=== PATIENT | female | born 1990 | race Caucasian/White ===

== ENCOUNTER 2016-11-07 14:54 | Emergency (ER) | payer MEDICAID ==
[2016-11-07 14:59] VITALS: TEMP 98.1
--- NOTE | 2016-11-07 15:56 | EDPHY ---
HPI/HX/ROS/PE/MDM Narrative: CHIEF COMPLAINT: Alcohol withdrawal HISTORY OF PRESENT ILLNESS: The patient is a 26-year-old female who comes to the ED with alcohol withdrawal. The patient has been drinking daily for the past two months. The patient's last drink was 20 hours ago. She complains of nausea and vomiting. She feels hot and complains of a headache. The patient states she would like to quit drinking. She has quit alcohol in the past and intermittently attends AA. She has no history of alcohol withdrawal seizures. Patient is currently feeling very emotional with no suicidal ideation. She quit taking her Prozac 1 month ago because it made her feel more depressed. Patient is currently menstruating. The patient is actively seeking help for detox. She states she would like help quitting alcohol. She has a job and friends and feels like there is more at stake. REVIEW OF SYSTEMS: Aside from elements discussed in the HPI, a comprehensive 10-point review of systems was reviewed and is negative. PAST MEDICAL HISTORY: Anxiety SOCIAL HISTORY: Heavy alcohol use. Marijuana use daily. Occasional use of OxyContin, Cocaine, Massiel, Acid. VITAL SIGNS: Reviewed by me GENERAL: Well-developed, well-nourished, slightly tearful. HEENT: Atraumatic. Eyes: No icterus, injected bilaterally. Mouth: moist mucous membranes. No tongue fasciculations. No erythema or lesions. Neck: supple with no adenopathy. LUNGS: Clear to auscultation bilaterally, no wheezes, rhonchi or rales. CARDIAC: Regular rate and rhythm, no rubs, murmurs or gallops. ABDOMEN: Soft, nontender, nondistended, bowel sounds normal. BACK: No CVA tenderness. EXTREMITIES: No trauma. No edema. Range of motion is normal throughout. No tremor. NEURO: Alert and oriented, grossly nonfocal. SKIN: Warm and dry, no rash. PSYCHIATRIC: Normal mentation, no agitation. Tearful. Portions of this note were transcribed by a district medical examiner. I personally performed a history, physical exam, medical decision making, and confirmed accuracy of information the transcribed note. ED Course: 26 year old with hx of alcohol abuse seeking care for withdrawl symptoms of headache and nausea. Plan to check basic lab work. IV was established, patient is receiving fluids. No tremors noted. Lab work is unremarkable. Ethyl alcohol level is less than 10. Better post fluids. Discussed at length alcohol withdrawl and offered referral to [facility]. Patient provided with information regarding treatment facilities and AAA. Seen by case monitor as well. Will follow up as directed. MDM: Diff dx considered included alcohol withdrawl, alcoholic ketoacidosis, dehydration, alcohol intoxication, electrolyte abnormalities, drug or alcohol abuse. - Data Points Laboratory Results: Laboratory Results 11/07/16 16:10 11/07/16 16:10 Medications Given: Discontinued Medications Sodium Chloride (Ns) 1,000 mls @ 0 mls/hr IV ONCE ONE; Wide Open PRN Reason: Protocol Stop: 11/07/16 15:59 Last Admin: 11/07/16 16:08 Dose: 1,000 mls Ondansetron HCl (Zofran Odt 4 Mg Prepack#2) 1 btl TAKEHOME EDNOW ONE Stop: 11/07/16 17:30 Last Admin: 11/07/16 17:45 Dose: 1 btl General Time Seen by Provider: 11/07/16 15:34 Initial Vital Signs: Initial Vital Signs Temperature (C) 36.7 C 11/07/16 14:56 Heart Rate 66 11/07/16 14:56 Respiratory Rate 18 11/07/16 14:56 Blood Pressure 123/89 H 11/07/16 14:56 O2 Sat (%) 96 11/07/16 14:56 O2 Delivery Mode Room Air Allergies/Adverse Reactions: amoxicillin Allergy (Verified 11/07/16 14:55) Penicillins Allergy (Verified 11/07/16 14:55) Home Medications: Medication Instructions Recorded Ondansetron Odt [Zofran Odt 4 mg 4 mg PO Q6 PRN #8 tab 11/07/16 (RX)] Departure - Departure Disposition: Home, Routine, Self-Care Clinical Impression: Alcohol withdrawal Qualifiers: Complication of substance-induced condition: uncomplicated Qualified Code(s): F10.230 - Alcohol dependence with withdrawal, uncomplicated Condition: Good Instructions: Ondansetron (By mouth), Alcohol Withdrawal (ED) Additional Instructions: Case Management: You may call [facility] to schedule an appointment with a primary care provider. They do take Medicaid. The address is: [facility] [address] [place] [id number] You been given a prescription for Zofran as well as a prepack of Zofran. You may use this as needed for nausea. You had been provided with resources regarding drug or alcohol treatment and drug or alcohol withdrawal. Referrals: [facility] [Outside] - As per Instructions [facility],. [Clinic] - As per Instructions Prescriptions: Ondansetron Odt [Zofran Odt 4 mg (RX)] 4 mg PO Q6 PRN #8 tab PRN Reason: Nausea Report Scribed for: Connie Elliott Report Scribed by: Dorene Diallo Date of Report: 11/07/16 Time of Report: 15:56
[2016-11-07] MEDS ORDERED: NS 1,000 ML IV ONE (15:58)
[2016-11-07 16:20] LABS: % IMMATURE GRANULYOCYTES 0.4 % (0.0-1.1); ABSOLUTE IMMATURE GRANULOCYTES 0.03 10^3/uL (0.00-0.10); ADD DIFF? NO; ADD MORPH? NO; ADD SCAN? NO; ATYPICAL LYMPHOCYTE FLAG 20 (0-99); FRAGMENT RBC FLAG 0 (0-99); HEMATOCRIT 42.7 % (38.0-47.0); HEMOGLOBIN 15.2 g/dL (12.6-16.3); LEFT SHIFT FLG 0 (0-99); LIPEMIA HEMOLYSIS FLAG 90 (0-99); MEAN CELL HEMOGLOBIN 31.6 pg (27.9-34.1); MEAN CELL HEMOGLOBIN CONCENTR. 35.6 g/dL (32.4-36.7); MEAN CELL VOLUME 88.8 fL (81.5-99.8); MEAN PLATELET VOLUME 9.7 fL (8.7-11.7); PLATELET CLUMPS FLAG 0 (0-99); PLATELET COUNT 260 10^3/uL (150-400); RED BLOOD CELL COUNT 4.81 10^6/uL (4.18-5.33); RED CELL DISTRIBUTION WIDTH 12.4 % (11.5-15.2)
[2016-11-07 16:33] LABS: ALANINE AMINOTRANSFERASE 32 IU/L (9-52); ALKALINE PHOSPHATASE 84 IU/L (38-126); ANION GAP 14 mEq/L (8-16); ASPARTATE AMINOTRANSFERASE 27 IU/L (14-46); BILIRUBIN,TOTAL 0.9 mg/dL (0.1-1.4); BILIRUBIN-CONJUGATED 0.3 mg/dL (0.0-0.5); BILIRUBIN-UNCONJUGATED 0.6 mg/dL (0.0-1.1); CALCIUM 10.2 mg/dL (8.5-10.4); CARBON DIOXIDE 21 mEq/l (22-31); CHLORIDE 103 mEq/L (97-110); CREATININE 0.8 mg/dL (0.6-1.0); ETHANOL SERUM < 10 mg/dL (0-10); GLOMERULAR FILTRATION RATE > 60; GLUCOSE 88 mg/dL (70-100); POTASSIUM 3.9 mEq/L (3.5-5.2); SODIUM 138 mEq/L (134-144); TOTAL PROTEIN 8.6 g/dL (6.3-8.2)
[2016-11-07] MEDS ORDERED: ONDANSETRON 4MG PREPACK#2 BTL TAKEHOME ONE (17:29)
[2016-11-07 17:48] VITALS: BP 141/97; PULSE 73; RESP 16; O2SAT 99
== END 2016-11-07 17:47 | disposition home or self-care (01) ==
DX: F10.230 Alcohol dependence with withdrawal, uncomplicated (principal); E86.9 Volume depletion, unspecified
CPT/HCPCS: G0480

== ENCOUNTER 2017-01-16 13:39 | Emergency (ER) | payer MEDICAID ==
[2017-01-16 14:09] VITALS: O2SAT 98
--- NOTE | 2017-01-16 14:45 | EDPHY ---
H & P Stated Complaint: blisters and finger sores for 1 week. HPI/ROS: CHIEF COMPLAINT: Sores on fingers HISTORY OF PRESENT ILLNESS: This is a 26-year-old female in general good health who presents with 1 week of finger pain. She has developed redness, swelling, and tenderness of several of her digits. She Has drained purulence from 3 of them and is concerned that the surrounding skin is not healing. 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 No farm work. She has not been aware of fever. She is right-hand dominant. She also complains of sore throat and nasal congestion that has been present for the last 24 hours. She has been able to eat and drink. She has not taken anything for her throat pain. She reports an unhealing sore on the central lower lip. No history of herpes. She states that she is under great deal of stress recently. REVIEW OF SYSTEMS: A ten point review of systems was performed and is negative with the exception of the items mentioned in the HPI. Past medical history: Negative. Past surgical history: Negative. Social history: She is a student. She also is employed part-time. She lives with a roommate. She vapes. She uses alcohol socially. No illicit drugs. General Appearance: Alert. Vital signs reviewed. Blood pressure 138/72, heart rate 115 at triage. Eyes: Pupils equal and round, no conjunctival injection, no discharge. Anicteric. ENT, Mouth: Mucous membranes are moist, moderate oropharyngeal erythema without edema or exudates. Site ulcerated lesion on her central lower lip; no blistering or scabbing, no swelling. No mucosal lesions. Neck: No lymphadenopathy, supple. Respiratory: Lungs are clear to auscultation; no wheezes, rales, or rhonchi. Cardiovascular: Regular rate and rhythm; no murmur, rub, or gallop. Not tachycardic at the time of my exam. Gastrointestinal: Abdomen is soft and nontender,. Skin: Warm and dry, no rashes on exposed skin, normal color. Extremities: There is a paronychia on the right index finger. There is what appears to be an early paronychia on the right ring finger. Right thumb has skin degloving at the tip. No purulence, swelling, or warmth. Left index and ring finger with skin degloving at the tip--no redness, swelling, or warmth. The areas where the skin is missing are areas that she says she previously drained. Neurological: Alert and oriented. Moving all four extremities easily and equally. Psychiatric: Anxious affect. - Personal History Current Tetanus Diphtheria and Acellular Pertussis (TDAP): Yes - Medical/Surgical History Hx Asthma: No Hx Chronic Respiratory Disease: No Hx Diabetes: No Hx Cardiac Disease: No Hx Renal Disease: No Hx Cirrhosis: No Hx Alcoholism: No Hx HIV/AIDS: No Hx Splenectomy or Spleen Trauma: No Other PMH: anxiety, insomnia, adhd. drug and alcoghol abuse - Social History Smoking Status: Former smoker Constitutional: Initial Vital Signs Temperature (C) 36.3 C 01/16/17 14:06 Heart Rate 117 H 01/16/17 14:06 Respiratory Rate 18 01/16/17 14:06 Blood Pressure 138/72 H 01/16/17 14:06 O2 Sat (%) 98 01/16/17 14:06 O2 Delivery Mode Room Air Allergies/Adverse Reactions: amoxicillin Allergy (Verified 11/07/16 14:55) Penicillins Allergy (Verified 11/07/16 14:55) Home Medications: Medication Instructions Recorded Doxycycline Hyclate [Doxycycline] 100 mg PO BID #14 cap 01/16/17 Medical Decision Making ED Course/Re-evaluation: Multiple paronychia with 1 in need of drainage. She has drained 3 of them herself and these now just have tenderness due to DD gloved skin at the tip of her finger. There is an apparent early paronychia that does not yet required drainage. I spoke with her twice about draining the paronychia on her right index finger. I explained the procedure to her. I explained that her finger would be numbed with a anesthetic prior to the procedure. However, twice she has declined any intervention. She understands that the infection will likely continue without drainage. I have recommended that she follow up in the next 1- 2 days if the infection does not show resolution. I am starting her on an antibiotic, doxycycline, although I do not think this is the best treatment--as above, I recommend drainage. She also appears to have sore throat. This is likely viral. We discussed symptomatic treatment. Vital signs normal at time of discharge. Differential Diagnosis: I considered a differential diagnosis that includes but is not limited to abscess, cellulitis, paronychia, parapoxvirus from animal contact, contact dermatitis. Departure - Departure Disposition: Home, Routine, Self-Care Clinical Impression: Paronychia of fingers of both hands Pharyngitis Qualifiers: Pharyngitis/tonsillitis etiology: unspecified etiology Qualified Code(s): J02.9 - Acute pharyngitis, unspecified Condition: Good Instructions: Paronychia (ED), Pharyngitis (ED) Additional Instructions: I am providing referrals for local primary care. Take antibiotic as prescribed. If your finger is not getting better in 1-2 days you should have it drained, as we discussed. Keep her hands clean and dry. Use a non greasy lubricating lotion. Adult Pain & Fever Control: We recommend Acetaminophen (Tylenol) and Ibuprofen (Motrin,Advil) for pain and fever control. When fever is high or pain severe, both drugs can be used at the same time, but at different intervals. Please note the time differences. Your dose is: Acetaminophen 650mg every 4 to 6 hours Ibuprofen 400mg every 6 hours with food OR Note: do not take Acetaminophen with Hydrocodone (Vicodin, Lortab) or Oycodone (Percocet). These medications also contain Acetaminophen. No more than 3000mg of Acetaminophen should be taken in 24 hours (for an adult). Referrals: [facility] [Outside] - As per Instructions Magy Genao MD [Medical Doctor] - As per Instructions Prescriptions: Doxycycline Hyclate [Doxycycline] 100 mg PO BID #14 cap
[2017-01-16 15:47] VITALS: BP 115/77; PULSE 97; RESP 15; TEMP 98.8
== END 2017-01-16 15:47 | disposition home or self-care (01) ==
DX: L03.012 Cellulitis of left finger (principal); L03.011 Cellulitis of right finger; J02.9 Acute pharyngitis, unspecified; Z87.891 Personal history of nicotine dependence

== ENCOUNTER 2017-02-03 15:28 | Emergency (ER) | payer MEDICAID ==
[2017-02-03 15:34] VITALS: BP 127/90; PULSE 76; RESP 16; TEMP 97.9; O2SAT 97
--- NOTE | 2017-02-03 15:55 | EDPHY ---
H & P Stated Complaint: generlized rash x 5 days-possibly from doxycycline HPI/ROS: CHIEF COMPLAINT: Rash HISTORY OF PRESENT ILLNESS: The patient is a 27 y/o female complaining of a worsening diffuse pruritic rash that began 3 days ago. I evaluated her 2.5 weeks ago for sores on her fingers and initiated a course of doxycycline. Those sores have improved. A few days after completing antibiotics, she developed non- painful and non-pruritic "spots" on both arms. This has since spread to her legs , trunk, and ears and became pruritic yesterday. She's noticed associated dry patchiness on her arms. She has tried multiple home remedies including coconut oil, olive oil, lotion, and eczema lotion. She takes Benadryl every night to sleep and hasn't noticed obvious improvement with it. She did switch laundry detergent around the same time her rash started. She denies dyspnea, fever, airway swelling. REVIEW OF SYSTEMS: A ten point review of systems was performed and is negative with the exception of the items mentioned in the HPI. Past medical history: Denies Past surgical history: Denies Family history: Mother has psoriasis Social history: States she is under a lot of stress currently. Currently sober in DUI class. Moved to [place]. Prior medical records reviewed including ED visit 01/16/17 for finger paronychia. General Appearance: Alert. Vital signs reviewed. Blood pressure 127/90. Eyes: Pupils equal and round, no conjunctival injection, no discharge. Anicteric. ENT, Mouth: Mucous membranes are moist, no oropharyngeal erythema, lesions, or edema. Erythematous papular pruritic rash on pinna, normal TMs bilaterally. Neck: No lymphadenopathy, supple. Respiratory: Lungs are clear to auscultation; no wheezes, rales, or rhonchi. Cardiovascular: Regular rate and rhythm; no murmur, rub, or gallop. Gastrointestinal: Abdomen is soft and nontender, no masses or organomegaly, bowel sounds normal. Skin: Warm and dry, normal color, diffuse erythematous papular pruritic rash-- covers entire body. Back: Nontender to palpation over the thoracolumbar spine. No CVAT. Extremities: No lower extremity edema, no calf tenderness or swelling. Neurological: Alert and oriented. Moving all four extremities easily and equally. Psychiatric: Normal affect. - Personal History LMP (Females 10-55): 1-7 Days Ago Current Tetanus/Diphtheria Vaccine: Unsure Current Tetanus Diphtheria and Acellular Pertussis (TDAP): Unsure - Medical/Surgical History Hx Asthma: No Hx Chronic Respiratory Disease: No Hx Diabetes: No Hx Cardiac Disease: No Hx Renal Disease: No Hx Cirrhosis: No Hx Alcoholism: No Hx HIV/AIDS: No Hx Splenectomy or Spleen Trauma: No Other PMH: anxiety, insomnia, adhd - Social History Smoking Status: Former smoker Constitutional: Initial Vital Signs Temperature (C) 36.6 C 02/03/17 15:31 Heart Rate 76 02/03/17 15:31 Respiratory Rate 16 02/03/17 15:31 Blood Pressure 127/90 H 02/03/17 15:31 O2 Sat (%) 97 02/03/17 15:31 O2 Delivery Mode Room Air Allergies/Adverse Reactions: amoxicillin Allergy (Verified 11/07/16 14:55) Penicillins Allergy (Verified 11/07/16 14:55) Home Medications: Medication Instructions Recorded predniSONE 20 mg PO DAILY #6 tablet 02/03/17 Medical Decision Making ED Course/Re-evaluation: This is a 27 y/o female who presents with a 3-day history of diffuse erythematous papular rash that has become pruritic over the last day. Symptoms began shortly after finishing a course of doxycycline for hand infection. She has no associated respiratory symptoms. Plan to treat with prednisone, Benadryl , and OTC agents. She will receive her first dose of Benadryl here. Her rash could represent an allergy to the doxycycline, so I've advised her avoid this in the future. Nothing to suggest Campuzano Neel's or TENS. She does not have signs of infection and I am not concerned about illnesses such as chickenpox or moves. Return precautions discussed. She is comfortable with plan for discharge. - Data Points Medications Given: Discontinued Medications Prednisone (Prednisone) 20 mg PO EDNOW ONE Stop: 02/03/17 16:07 Last Admin: 02/03/17 16:35 Dose: 20 mg Departure - Departure Disposition: Home, Routine, Self-Care Clinical Impression: Rash, Drug eruption Condition: Good Instructions: Acute Rash (ED), Antibiotic Medication Allergy (ED) Additional Instructions: 1. Since this rash could be related to the doxycycline you were on, I recommend avoiding this antibiotic in the future. 2. Take prednisone as prescribed. Complete the entire prescription. 3. Take Benadryl as directed on the packaging for the next 3 days. This will make you sleepy. 4. Take Zantac as directed on the packaging for the next 3 days. This can help with stomach upset sometimes caused by prednisone. 5. You can try Sarna lotion, available [id number], as needed for itching. 6. Follow up with a onboarding specialist for unimproved symptoms over the next few days. I recommend calling today to schedule an appointment as they can be difficult to get into. 7. Return to the ED if you experience shortness of breath, difficulty swallowing , mouth swelling, or other worsening of condition. Referrals: Isha Hoffmann MD [Medical Doctor] - As per Instructions Prescriptions: predniSONE 20 mg PO DAILY #6 tablet Report Scribed for: Iman Jc Report Scribed by: Zoraida Ramirez Date of Report: 02/03/17 Time of Report: 16:07 Physician Review and Approval Statement: 02/03/17 15:55 Portions of this note were transcribed by the medical assembler. I, Dr. Iman Jc, personally performed the history, physical exam, and medical decision- making; and confirmed the accuracy of the information in the transcribed note.
[2017-02-03] MEDS ORDERED: predniSONE 20 MG TAB PO ONE (16:06)
== END 2017-02-03 16:39 | disposition home or self-care (01) ==
DX: L27.0 Generalized skin eruption due to drugs and medicaments taken internally (principal); Z87.891 Personal history of nicotine dependence